=== PATIENT | female | born 1960 | race Hispanic/Latino ===

== ENCOUNTER 2017-09-18 15:01 | Emergency (ER) | payer MEDICARE ==
[2017-09-18] MEDS ORDERED: ASPIRIN 325 MG TABLET ONE (15:23)
[2017-09-18 15:33] LABS: BASOPHILS % (AUTO) 0.4 % (0.0-5.0); EOSINOPHILS % (AUTO) 1.9 % (0.0-8.0); HEMATOCRIT 39.4 % (36-48); LYMPHOCYTES % (AUTO) 14.6 % (21.0-51.0); MEAN CORPUSCULAR HGB CONC 35.4 g/dL (32.0-36.0); MEAN CORPUSCULAR VOLUME 93.2 fL (79-99); MONOCYTES % (AUTO) 10.2 % (3.0-13.0); NEUTROPHILS % (AUTO) 72.9 % (40.0-77.0); NUCLEATED RED BLOOD CELLS 0.1 % (0.0-0.19); PLATELET COUNT (AUTO) 210 K/uL (130-400); RED BLOOD CELL COUNT(AUTO) 4.23 MIL/uL (4.00-5.50); RED CELL DISTRIBUTION WIDTH 13.1 % (11.0-15.5); WHITE BLOOD COUNT (AUTO) 8.3 K/uL (4.8-10.8)
[2017-09-18 15:42] LABS: INR 0.96 (0.85-1.15); PARTIAL THROMBOPLASTIN TIME 28.3 SEC (26.3-35.5); PROTHROMBIN TIME 10.1 SEC (9.6-11.6)
[2017-09-18 15:45] LABS: CREATININE 1.3 mg/dL (0.5-1.5); POTASSIUM 3.7 mmol/L (3.5-5.1)
[2017-09-18 16:00] LABS: ALBUMIN 3.5 g/dL (3.5-5.0); BILIRUBIN,TOTAL 0.5 mg/dL (0.2-1.0); CREATINE KINASE MB 0.7 ng/mL (0.5-3.6)
[2017-09-18 16:01] LABS: B-TYPE NATRIURETIC PEPTIDE 39 pg/mL (0-100)
[2017-09-18] MEDS ORDERED: IOPAMIDOL-370 100 ML VIAL IV ONE (17:19)
== END 2017-09-18 19:18 | disposition home or self-care (01) ==
LOC: EDH 15:01
DX: R07.89 Other chest pain (principal); R06.02 Shortness of breath; I10 Essential (primary) hypertension; Z88.8 Allergy status to other drugs, medicaments and biological substances; Z86.73 Personal history of transient ischemic attack (TIA), and cerebral infarction without residual deficits; Z85.818 Personal history of malignant neoplasm of other sites of lip, oral cavity, and pharynx; Z98.890 Other specified postprocedural states
CPT/HCPCS: 36415; 71045; 71275; 80053; 82550; 82553; 83874; 83880; 84484 ×2; 85025; 85378; 85610; 85730; 93005 ×2; 94761; 99285; Q9967

== ENCOUNTER → 2018-04-22 | Outpatient (CLI) | payer MEDICARE ==
[~2018-04-22] VITALS: Ht 154.9 cm; Wt 125.8 kg
[~2018-04-22] MED LIST: AMLO5TAB9 PO; ASPI1CPM8 PO; CEFAZOLIN 3GM /D5W 100ML 100 ML IV SCH; CHOL50004 PO; DICL75TA5 PO; ESCI20TA36 PO; FAMO20TA8 PO; FOLI1TAB85 PO; FURO20TA4 PO; GENTAMICIN SULFATE 240 MG in SODIUM CHLORIDE 0.9% 100 ML IV SCH; IBUP-2077 PO; LEVO175T9 PO; LISI10TA7 PO; METO50TA18 PO; ROSU10TA27 PO; TYL3 PO
[2018-04-22 13:21] VITALS: BP 154/75
[2018-04-22 13:30] LABS: BASOPHILS % (AUTO) 0.4 % (0.0-5.0); HEMATOCRIT 42.4 % (36-48); LYMPHOCYTES % (AUTO) 10.4 % (21.0-51.0); MEAN CORPUSCULAR HEMOGLOBIN 31.1 pg (27.0-33.0); MEAN CORPUSCULAR HGB CONC 33.1 g/dL (32.0-36.0); NEUTROPHILS % (AUTO) 80.2 % (40.0-77.0); NUCLEATED RED BLOOD CELLS 0.1 % (0.0-0.19); PLATELET COUNT (AUTO) 186 K/uL (130-400); RED BLOOD CELL COUNT(AUTO) 4.51 MIL/uL (4.00-5.50); RED CELL DISTRIBUTION WIDTH 12.6 % (11.0-15.5); WHITE BLOOD COUNT (AUTO) 8.6 K/uL (4.8-10.8)
[2018-04-22 13:41] LABS: CREATININE 1.2 mg/dL (0.5-1.5)
[2018-04-22 13:43] LABS: INR 0.97 (0.85-1.15); PARTIAL THROMBOPLASTIN TIME 30.1 SEC (26.3-35.5); PROTHROMBIN TIME 10.2 SEC (9.6-11.6)
--- NOTE | 2018-04-22 13:52 | NUR ---
SICK PATIENT STATES STARTED WITH CONGESTION THIS AM. STATED "SHE IS NOT SURE IF IT IS ALLERGIES" . INSTRUCTED PATIENT TO SEE PCP TODAY TO MAKE SURE SHE IS OK FOR SURGERY NEXT WEEK ON 04-27-18, PT DENIES ANY FEVER, CHILLS, PHLEGM, OR SORE THROAT. INSTRUCTED PATIENT TO NOTIFY MD IF SHE GETS WORST. BUT TO SEE PCP TODAY TO BE EVALUATED, PT STATED SHE WILL GO TO [facility] RIGHT NOW TO BE CHECKED OUT.
[2018-04-22 14:39] LABS: APPEARANCE,URINE Clear (CLEAR); BILIRUBIN,URINE Negative (NEGATIVE); COLOR,URINE Dark Yellow (YELLOW); GLUCOSE, URINE (UA) Negative (NEGATIVE); KETONES,URINE Trace mg/dL (NEGATIVE); LEUKOCYTE ESTERASE ,URINE Small (NEGATIVE); NITRATE,URINE Negative (NEGATIVE); OCCULT BLOOD,URINE Nonhemolyzed Trace (NEGATIVE); PROTEIN,URINE Trace (NEGATIVE)
[2018-04-22 15:04] LABS: RBC,URINE 0-1 /HPF (0-1)
[2018-04-22 15:05] LABS: BACTERIA,URINE Few /HPF (None Seen); MUCUS,URINE Moderate LPF (None Seen)
--- NOTE | 2018-04-22 15:13 | NUR ---
UA abnormal ua collected 04/22/[address] Siri Rosas, orders received
--- NOTE | 2018-04-25 13:15 | NUR ---
note pts husbands states pt has been ill , flu like symptoms. she went to [facility] and was started on antibiotics on wednesday. called dr palomares to notify him and he stated to cancel surgery. called patient to notify
== END | disposition home or self-care (01) ==
LOC: DAH 10:00 → EDSTATUS 13:30
PROVIDERS: ATTEND Orthopaedic Surgery
DX: M17.11 Unilateral primary osteoarthritis, right knee (principal); I12.9 Hypertensive chronic kidney disease with stage 1 through stage 4 chronic kidney disease, or unspecified chronic kidney disease; E11.22 Type 2 diabetes mellitus with diabetic chronic kidney disease; E78.5 Hyperlipidemia, unspecified; E03.9 Hypothyroidism, unspecified; F41.9 Anxiety disorder, unspecified; Z79.899 Other long term (current) drug therapy
CPT/HCPCS: 36415; 80048; 81001; 85025; 85610; 85730; J0690; J1580

== ENCOUNTER 2018-09-09 06:05 | Day surgery (SDC) | payer MEDICARE ==
[2018-09-08 14:49] VITALS: BP 165/63
[2018-09-08 14:59] LABS: BASOPHILS % (AUTO) 0.6 % (0.0-5.0); EOSINOPHILS % (AUTO) 2.1 % (0.0-8.0); HEMATOCRIT 39.7 % (36-48); LYMPHOCYTES % (AUTO) 15.3 % (21.0-51.0); MEAN CORPUSCULAR HEMOGLOBIN 31.5 pg (27.0-33.0); MEAN CORPUSCULAR HGB CONC 34.2 g/dL (32.0-36.0); MEAN CORPUSCULAR VOLUME 92.1 fL (79-99); MONOCYTES % (AUTO) 8.9 % (3.0-13.0); NEUTROPHILS % (AUTO) 73.1 % (40.0-77.0); PLATELET COUNT (AUTO) 198 K/uL (130-400); RED BLOOD CELL COUNT(AUTO) 4.31 MIL/uL (4.00-5.50); RED CELL DISTRIBUTION WIDTH 13.5 % (11.0-15.5); WHITE BLOOD COUNT (AUTO) 7.1 K/uL (4.8-10.8)
[2018-09-08 15:08] LABS: POTASSIUM 4.1 mmol/L (3.5-5.1)
[2018-09-08 15:47] LABS: APPEARANCE,URINE CLEAR (CLEAR); BILIRUBIN,URINE NEGATIVE (NEGATIVE); COLOR,URINE YELLOW (YELLOW); GLUCOSE, URINE (UA) NEGATIVE (NEGATIVE); KETONES,URINE 5 mg/dL (NEGATIVE); LEUKOCYTE ESTERASE ,URINE SMALL (NEGATIVE); NITRATE,URINE NEGATIVE (NEGATIVE); OCCULT BLOOD,URINE SMALL (NEGATIVE); PH,URINE 5.5 (5.0-8.0); PROTEIN,URINE NEGATIVE (NEGATIVE); UROBILINOGEN,URINE 0.2 mg/dL (0.2-1.0)
[2018-09-08 16:17] LABS: BACTERIA,URINE Few /HPF (None Seen); RBC,URINE 0-1 /HPF (0-1)
[2018-09-08 16:18] LABS: SQUAMOUS EPITHELIAL CELL,UR Few /HPF (0-2)
--- NOTE | 2018-09-08 17:20 | NUR ---
MEDS INFORMED DR. ZHU OF PT TAKING DICLOFENAC AND ABNORMAL UA. ORDERS RECEIVED TO GIVE GENTAMICIN 240MG IV MORNING OF PROCEDURE.
[~2018-09-09] VITALS: Ht 154.9 cm; Wt 122.6 kg
[2018-09-09] VITALS (15 sets, daily range): BP systolic 118–183; BP diastolic 57–79
[~2018-09-09 06:05] MED LIST changes: -ASPI1CPM8 PO; +ASPIRIN PO; -CEFAZOLIN 3GM /D5W 100ML 100 ML IV SCH; +CITA-107 PO; -DICL75TA5 PO; +DICLOFENAC PO; +DIPYRIDAMOLE PO; -ESCI20TA36 PO; -FURO20TA4 PO; -GENTAMICIN SULFATE 240 MG in SODIUM CHLORIDE 0.9% 100 ML IV SCH; +HYDR-2132 PO; -IBUP-2077 PO; -LEVO175T9 PO; +LEVO200T10 PO; +NAPR-1023 PO
--- NOTE | 2018-09-09 06:50 | NUR ---
POTENTIAL FOR INFECTION: SHAVED RIGHT LEG / KNEE FOLLOWED BY WIPING WITH INNA: 2% CHLORHEXIDINE GLUCONATE CLOTH PATIENTS PRE-OP SKIN PREP. DONE BY BARBARA SILVERMAN MA.
[2018-09-09] MEDS ORDERED: LACTATED RINGERS 1000ML 1,000 ML IV ONE (07:00)
[2018-09-09] MEDS: CEFAZOLIN SODIUM 1 GM VIAL ONE ×2 (07:14→08:53)
[2018-09-09] MEDS ORDERED: PROPOFOL 10 MG/ML 20ML VIAL IV ONE (08:23)
[2018-09-09] MEDS ORDERED: LIDOCAINE PF 2% 5ML ABBOJECT ONE (08:23)
[2018-09-09] MEDS ORDERED: FENTANYL CITRATE PF 50 MCG/1 ML 2ML VIAL ONE (08:23)
[2018-09-09] MEDS ORDERED: ROCURONIUM 10MG/1ML SYR 10 MG/ML ML ONE (08:24)
[2018-09-09] MEDS ORDERED: EPHEDRINE SULFATE 50 MG/ML AMPULE ONE (09:06)
[2018-09-09] MEDS ORDERED: KETOROLAC TROMETHAMINE 30MG/ML ONE (09:59)
[2018-09-09] MEDS ORDERED: CEFAZOLIN 3GM /D5W 100ML 100 ML IV PRN (10:00)
[2018-09-09] MEDS ORDERED: GENTAMICIN SULFATE 240 MG in SODIUM CHLORIDE 0.9% 100 ML IV PRN (10:00)
[2018-09-09] MEDS ORDERED: ONDANSETRON HCL 4 MG/2 ML VIAL ONE (10:00)
[2018-09-09] MEDS ORDERED: GLYCOPYRROLATE 1 MG/5 ML SYRINGE ONE (10:01)
[2018-09-09] MEDS ORDERED: NEOSTIGMINE 5MG/5ML SYR IV ONE (10:01)
[2018-09-09] MEDS ORDERED: TYL3 PO (10:03)
[2018-09-09] MEDS ORDERED: SULF1TAB42 PO (10:03)
[2018-09-09] MEDS ORDERED: MORPHINE SULFATE 2 MG/ML 1ML SYG ONE ×2 (10:21→10:31)
[2018-09-09 14:12] LABS: SPECIMENTYPE,BODY FLUID SYNOVIAL
[2018-09-09 14:14] LABS: APPEARANCE BODY FLUID BLOODY (CLEAR); BODY FLUID WBC 205 /cu. mm.; COLOR,BODY FLUID RED (LT YELLOW); TOTAL VOLUME,BODY FLUID 5 mL
[2018-09-09 14:15] LABS: BODY FLUID RBC 8875 /cu. mm.
[2018-09-09 14:27] LABS: BF LYMPHOCYTE 4 %
== END 2018-09-09 11:50 | disposition home or self-care (01) ==
LOC: DAH 06:05
PROVIDERS: ATTEND Orthopaedic Surgery
DX: M25.861 Other specified joint disorders, right knee (principal); Z68.43 Body mass index [BMI] 50.0-59.9, adult; Z79.899 Other long term (current) drug therapy; Z98.890 Other specified postprocedural states; I10 Essential (primary) hypertension; Z86.73 Personal history of transient ischemic attack (TIA), and cerebral infarction without residual deficits; Z96.659 Presence of unspecified artificial knee joint; M19.90 Unspecified osteoarthritis, unspecified site; E05.90 Thyrotoxicosis, unspecified without thyrotoxic crisis or storm; Z98.49 Cataract extraction status, unspecified eye; Z83.3 Family history of diabetes mellitus; Z82.49 Family history of ischemic heart disease and other diseases of the circulatory system; Z85.89 Personal history of malignant neoplasm of other organs and systems; Z85.09 Personal history of malignant neoplasm of other digestive organs; J45.909 Unspecified asthma, uncomplicated; K21.9 Gastro-esophageal reflux disease without esophagitis
CPT/HCPCS: 29877; 36415; 80048; 81001; 85025; 87070; 87076; 87077; 87186; 87205; 89051; A4218; A4606; A4649 ×3; A4930; A6223; J0690; J1580; J1885; J2001; J2405; J2704; J2710; J3010; J3490 ×2; J7030; J7120

== ENCOUNTER 2022-01-10 09:29 | Emergency (ER) | payer MEDICARE ==
[~2022-01-10] VITALS: Ht 154.9 cm; Wt 122.5 kg
[~2022-01-10 09:29] MED LIST changes: +AMLO-257 PO; -AMLO5TAB9 PO; -DICLOFENAC PO; -HYDR-2132 PO; +LISI10TA24 PO; -LISI10TA7 PO; -ROSU10TA27 PO; +ROSU10TA28 PO; +SULF1TAB42 PO
[2022-01-10 09:57] LABS: BASOPHILS % (AUTO) 0.3 % (0.0-5.0); EOSINOPHILS % (AUTO) 1.5 % (0.0-8.0); HEMATOCRIT 44.7 % (36-48); LYMPHOCYTES % (AUTO) 12.2 % (21.0-51.0); MEAN CORPUSCULAR HEMOGLOBIN 30.5 pg (27.0-33.0); MEAN CORPUSCULAR HGB CONC 33.6 g/dL (32.0-36.0); MONOCYTES % (AUTO) 9.4 % (3.0-13.0); NEUTROPHILS % (AUTO) 76.2 % (40.0-77.0); PLATELET COUNT (AUTO) 214 K/uL (130-400); RED BLOOD CELL COUNT(AUTO) 4.91 MIL/uL (4.00-5.50); RED CELL DISTRIBUTION WIDTH 12.6 % (11.0-15.5); WHITE BLOOD COUNT (AUTO) 9.3 K/uL (4.8-10.8)
[2022-01-10 10:17] LABS: APPEARANCE,URINE CLEAR (CLEAR); BILIRUBIN,URINE NEGATIVE (NEGATIVE); COLOR,URINE YELLOW (YELLOW); GLUCOSE, URINE (UA) >=1000 mg/dL (NEGATIVE); KETONES,URINE NEGATIVE (NEGATIVE); LEUKOCYTE ESTERASE ,URINE TRACE (NEGATIVE); NITRATE,URINE NEGATIVE (NEGATIVE); OCCULT BLOOD,URINE TRACE-INTACT (NEGATIVE); PROTEIN,URINE NEGATIVE (NEGATIVE); UROBILINOGEN,URINE 0.2 mg/dL (0.2-1.0)
[2022-01-10 10:27] LABS: ALBUMIN 3.6 g/dL (3.5-5.0); CREATININE 1.3 mg/dL (0.5-1.5); POTASSIUM 4.2 mmol/L (3.5-5.1); TOTAL PROTEIN, SERUM 7.1 g/dL (6.0-8.3)
[2022-01-10 10:44] LABS: BACTERIA,URINE Few /HPF (None Seen); RBC,URINE 0-1 /HPF (0-1); WBC,URINE 0-1 /HPF (0-1)
[2022-01-10] MEDS ORDERED: DICY20TA2 PO (12:30)
[2022-01-10 12:44] VITALS: BP 106/55
== END 2022-01-10 12:46 | disposition home or self-care (01) ==
LOC: EDH 09:29
DX: K80.20 Calculus of gallbladder without cholecystitis without obstruction (principal); E78.00 Pure hypercholesterolemia, unspecified; I10 Essential (primary) hypertension; Z79.1 Long term (current) use of non-steroidal anti-inflammatories (NSAID); Z86.73 Personal history of transient ischemic attack (TIA), and cerebral infarction without residual deficits; Z88.5 Allergy status to narcotic agent; Z88.8 Allergy status to other drugs, medicaments and biological substances
CPT/HCPCS: 36415; 74176; 80053; 81001; 83690; 85025

== ENCOUNTER → 2024-04-07 | Outpatient (CLI) | payer OTHER ==
[~2024-04-07] MED LIST changes: +DICY20TA2 PO; -ROSU10TA28 PO; +ROSU10TA72 PO
--- NOTE | 2024-04-07 10:30 | HMCIMG ---
CT HEART SAVER PROMOTIONAL HISTORY: Calcium scoring COMPARISON: None TECHNIQUE: Computed tomography of the heart was performed with ECG gating and suspended respiration. Postprocessing was performed on a computer workstation to obtain diastolic phase images, determine calcium score and provide a quantitative assessment of extent of disease. This CT included only the heart. HeartSaver score is 330.80. Please see cardiac calcium score report. The available CT chest images show no acute finding. CT was performed with one or more following dose reduction techniques: automated exposure control, adjustment of the mA and kv according to patient's size, or use of a iterative reconstruction technique.
== END | disposition home or self-care (01) ==
LOC: RAH 07:42
PROVIDERS: ATTEND Internal Medicine Cardiovascular Disease
DX: Z13.6 Encounter for screening for cardiovascular disorders (principal)
CPT/HCPCS: 75571

== ENCOUNTER 2024-09-14 06:52 | Observation (INO) | payer MEDICARE ==
[2024-09-11 12:18] LABS: BASOPHILS # (AUTO) 0.03 K/uL (0.00-0.20); BASOPHILS % (AUTO) 0.3 % (0.0-5.0); EOSINOPHILS # (AUTO) 0.14 K/uL (0.00-0.70); EOSINOPHILS % (AUTO) 1.5 % (0.0-8.0); HEMATOCRIT 45.6 % (36-48); IMMATURE GRANULOCYTE ABSOLUTE 0.02 K/uL (0-1); LYMPHOCYTES # (AUTO) 1.4 K/uL (1.0-4.8); LYMPHOCYTES % (AUTO) 14.7 % (21.0-51.0); MEAN CORPUSCULAR HEMOGLOBIN 33.1 pg (27.0-33.0); MEAN CORPUSCULAR HGB CONC 34.9 g/dL (32.0-36.0); MEAN CORPUSCULAR VOLUME 94.8 fL (79-99); MONOCYTES # (AUTO) 0.9 K/uL (0.1-1.0); MONOCYTES % (AUTO) 9.4 % (3.0-13.0); NEUTROPHILS # (AUTO) 6.8 K/uL (1.8-7.7); NEUTROPHILS % (AUTO) 73.9 % (40.0-77.0); PLATELET COUNT (AUTO) 216 K/uL (130-400); RED BLOOD CELL COUNT(AUTO) 4.81 MIL/uL (4.00-5.50); RED CELL DISTRIBUTION WIDTH 12.2 % (11.0-15.5); WHITE BLOOD COUNT (AUTO) 9.2 K/uL (4.8-10.8)
[2024-09-11 12:41] LABS: INR 0.96 (0.85-1.15); PROTHROMBIN TIME 10.2 SEC (9.6-11.6)
[2024-09-11 12:42] LABS: PARTIAL THROMBOPLASTIN TIME 29.6 SEC (26.3-35.5)
--- NOTE | 2024-09-11 12:45 | NUR ---
IS INITIAL TEACHING DONE BY RT BHAVNA
[2024-09-11 12:49] LABS: CREATININE 1.1 mg/dL (0.5-1.0); POTASSIUM 4.5 mmol/L (3.5-5.1)
--- NOTE | 2024-09-11 13:25 | NUR ---
NOTIFIED DR. ZHU PATIENT ON AGGRENOX BID FOR HISTORY OF STROKE, PATIENT UNAWARE OF WHEN TO STOP MEDICATION. INFORMED MD PATIENT TOOK DOSE THIS AM, SURGERY ON THURSDAY 09/14. PER DR. ZHU, PATIENT TO STOP OF NOW. CALLED PATIENT AND INSTRUCTED TO HOLD MEDICATION OF NOW. PT VERBALIZED UNDERSTANDING.
[2024-09-11 13:29] LABS: APPEARANCE,URINE CLEAR (CLEAR); BILIRUBIN,URINE NEGATIVE (NEGATIVE); COLOR,URINE YELLOW (YELLOW); GLUCOSE, URINE (UA) >=1000 mg/dL (NEGATIVE); KETONES,URINE NEGATIVE (NEGATIVE); LEUKOCYTE ESTERASE ,URINE 75 Leu/uL (NEGATIVE); NITRATE,URINE NEGATIVE (NEGATIVE); PROTEIN,URINE 10 mg/dL (NEGATIVE); UROBILINOGEN,URINE 0.2 mg/dL (0.2-1.0)
[2024-09-11 13:35] VITALS: BP 169/82; PULSE 65; RESP 18; TEMP 98.4
[2024-09-11 13:35] LABS: ADD UA MICROSCOPIC YES
[2024-09-11 13:36] LABS: MUCUS,URINE RARE LPF (None Seen); NON-SQUAMOUS EPITHELIAL CELL 1 /HPF (0-2); SQUAMOUS EPITHELIAL CELL,UR MOD /HPF (0-2)
--- NOTE | 2024-09-13 10:11 | NUR ---
RE: LABS REPORTED URINE CX/SUSCEPTIBILITIES TO DR ZHU, NO NEW ORDERS RECEIVED.
[2024-09-14] VITALS (25 sets, daily range): BP systolic 98–143; BP diastolic 51–92; PULSE 66–95; RESP 16–19; TEMP 97.5–98.2; O2SAT 94
[~2024-09-14] VITALS: Ht 154.9 cm; Wt 105.1 kg
[~2024-09-14 06:52] MED LIST changes: -ASPIRIN PO; +ASPIRIN/DIPYRIDAMOLE PO; -CITA-107 PO; +CITA-108 PO; +DAPA10TA PO; -DICY20TA2 PO; -DIPYRIDAMOLE PO; -FAMO20TA8 PO; +LEVO125C5 PO; -LEVO200T10 PO; -LISI10TA24 PO; +LISI20TA24 PO; -NAPR-1023 PO; +PANT40TA54 PO; +SEMA2PEN SQ; -SULF1TAB42 PO; -TYL3 PO
[2024-09-14] MEDS: 0.9%NACL 1000ML 1,000 ML IV ONE (07:23)
[2024-09-14] MEDS ORDERED: dexaMETHasone SOD PHOSPHATE 10MG/ML 1ML VIAL ONE (07:37)
[2024-09-14] MEDS ORDERED: proPOFol 10 MG/ML 20ML VIAL IV ONE (07:37)
[2024-09-14] MEDS ORDERED: LIDOCAINE PF 100MG/5ML (2%) SYRINGE 5ML ONE (07:37)
[2024-09-14] MEDS ORDERED: SUCCINYLCHOLINE CHLORIDE 20 MG/ML 10 ML VIAL ONE (07:37)
[2024-09-14] MEDS ORDERED: GLYCOPYRROLATE 0.2 MG/ML 5 ML VIAL ONE (07:38)
[2024-09-14] MEDS ORDERED: FENTanyl CITRate PF 50 MCG/1 ML 2ML VIAL ONE ×2 (07:38→11:07)
[2024-09-14] MEDS ORDERED: NEOSTIGMINE METHYLSULFATE 1MG/ML IV ONE (07:38)
[2024-09-14] MEDS ORDERED: ondanSETRON 4MG INJ ONE (07:38)
[2024-09-14] MEDS ORDERED: rocuRONium bROMide 10MG/1ML 5ML VL ONE (07:38)
[2024-09-14] MEDS ORDERED: MIDAZOLAM HCL 1 MG/ML 2ML VIAL ONE (07:38)
[2024-09-14] MEDS ORDERED: VANCOMYCIN 500MG+NS 100ML 100 ML IV ONE (07:40)
[2024-09-14] MEDS ORDERED: phenylEPHRINE HCL 10 MG/ML 1ML VIAL IV ONE (07:41)
[2024-09-14] MEDS ORDERED: ceFAZolin SODIUM 1 GM VIAL ONE (08:11)
[2024-09-14] MEDS: TRANEXAMIC ACID 1000MG/10ML ONE (10:22)
[2024-09-14] MEDS: ceFAZolin SODIUM 2 GM VIAL ONE (10:23)
[2024-09-14] MEDS ORDERED: EPINEPHrine PF 1MG (1:1,000) 1 MG/ML AMP ONE (10:38)
[2024-09-14] MEDS: FAMOTIDINE 20MG VIAL IV ONE (10:44)
[2024-09-14] MEDS ORDERED: ePHEDrine SULFate 50 MG/ML AMPULE ONE (10:50)
[2024-09-14] MEDS: ceFAZolin SODIUM 1 GM VIAL IRRIG ONE (11:05)
[2024-09-14] MEDS: VANCOMYCIN 500MG VIAL IJ ONE ×2 (11:05)
--- NOTE | 2024-09-14 12:16 | OP ---
Operative Note: DATE OF PROCEDURE: 09/14/24 SURGEON: LISHA ZHU MD SPOTLIGHT OPERATOR: [Heydi Cardenas CFA] ANESTHESIA: [General anesthesia plus regional block] ANESTHESIOLOGIST/SILVER LAP MACHINE TENDER: [Chele Mendiola CRNA] PREOPERATIVE DIAGNOSIS: [Left knee osteoarthritis] POSTOPERATIVE DIAGNOSIS: [Left knee osteoarthritis] IMPLANTS: [Biomet vanguard: Femur size 67.5 left PS. Tibia size 67 fixed cruciate. Tibial liner size 10 x 60 3/67 PS. Patella size 28 by eight asymmetric.] PROCEDURE: [Left total knee arthroplasty] ESTIMATED BLOOD LOSS: [100 mL] INDICATIONS: [64-year-old female with history of pain to the left knee secondary to osteoarthritis that has no longer responded to conservative treatment. The patient is brought to the operating room for a left total knee arthroplasty. Procedure understood, risks, benefits and possible complications and the patient agreed signed the consent form] DESCRIPTION OF PROCEDURE: [After adequate general anesthesia was achieved and regional block obtained the left lower extremity was prepped and draped in the usual manner previous placement of the tourniquet in the proximal thigh. The extremity was then elevated and exsanguinated with an Esmarch bandage and the tourniquet inflated to 250 mmHg the Esmarch band been then removed. With the knee in flexion a longitudinal incision was then made in the anterior aspect through the skin followed by dissection of the subcutaneous tissue. A bone infusion needle was then inserted just medial to the tibial tuberosity and we proceeded to inject into the proximal tibia a solution of normal saline 50 mL with vancomycin 500 mg. The bone infusion needle was then removed. A paramedian approach was then made with the Bovie cautery cutting through the quadriceps tendon, medial patellar retinaculum and patellar tendon retinaculum. The retropatellar tendon fat was then excised and the soft tissue elements of the tibia were elevated subperiosteally and retractors were applied medially and laterally . The anterior and posterior cruciate ligaments were resected. With the use of a drill a starting hole was made in the distal femur entering the intramedullary canal and then after removal of the drill an intramedullary guide was inserted with a 5 degree valgus block that touched the distal femur and to this the distal femoral cutting guide was then applied anteriorly and was secured to the distal femur with the use of pins. The intramedullary guide was then removed and with the use of the oscillating saw we proceeded to resect the distal femur removing the fragments and the guide. The femoral sizer was then applied distally and drill holes were made removing the sizer and the 4-in-1 cutting block was then inserted and the anterior, posterior and chamfer cuts were made removing the fragments and the block. The posterior cruciate ligament retractor was then inserted posterior to the tibia and this was brought forward proceeding then to apply the external tibial alignment guide and secured the proximal cutting guide to the tibia with the use of pins. With the use of the oscillating saw the proximal cut to the tibia tibia was made. The bone fragment was removed and the trial tibia plate was chosen. At this point the menisci were removed sharply and with the use of the curved osteotome the posterior osteophytes of the femur were removed. The PS cutting guide was then inserted and the intercondylar cut was made removing the fragment and the guide. The trial components were then inserted at the femur and tibia with a trial tibial liner bringing the knee into extension noticing that the patient had a very stable knee in flexion, extension and with valgus and varus stress. The knee was maintained in extension and the patella was then addressed proceeding to measure its thickness and then with the use of the oscillating saw we removed eight mm from the articular surface and restored the height with application of a trial component after 3 peg holes were made. The patellofemoral ligament was removed and then the patellofemoral tracking was checked noticing to be lateralize and for this reason we proceeded to do an extensive lateral release the tracking becoming then normal. At this moment all the components were removed, the tibia after the metaphyseal defect was created and while cement was being mixed on the back table we proceeded to irrigate the joint with antibiotic solution and then cover the entry to the femoral canal with a bone plug. Once the cement was ready we proceeded to apply it first to the tibia surface inserting the final component and then to the femoral surface and inserted the final component removing the excess cement and then applying a trial liner bringing the knee into extension for compression. Then we proceeded to irrigate the patella surface and dried it applying then bone cement and the final patellar component was inserted and was secured with application of a clamp. The joint was irrigated with a warm diluted Betadine solution while the cement dried followed by irrigation with antibiotic solution. The trial liner was removed as well as the patellar clamp and we proceeded then to irrigate the posterior aspect of the joint to remove all the remaining debris and the final tibial liner was inserted and locked against the tibia . The range of motion was checked and noticed to be adequate with full extension and flexion, no laxity in valgus or varus stress and with adequate patellofemoral tracking. The patient had no anterior or posterior drawer. After further irrigation the tourniquet was deflated and hemostasis was obtained. The wound was then closed with approximation of the quadriceps tendon, patellar retinaculum and patellar tendon retinaculum with #1 Vicryl close stitches alternating with #1 Ethibond stitches, and this was followed by closure of the subcutaneous tissue with 2-0 Monocryl inverted stitches and the skin was closed with 3-0 Monocryl subcuticularly. The wound was covered with a suction dressing followed by application of an Link bandage for compression and the drapes were then removed transferring the patient to the hospital bed and taken to recovery room for follow-up by anesthesia. There were no complications during the procedure.] LISHA ZHU MD September 14, 2024 12:15
[2024-09-14] MEDS ORDERED: PoTASSium chl 10% ELIXIR 20MEQ 20 MEQ/15 ML UDCUP PO PRN (12:30)
[2024-09-14] MEDS ORDERED: PoTASSium chloRIDE 20MEQ/100ML 100 ML IV PRN (12:30)
[2024-09-14] MEDS ORDERED: FERROUS FUMARATE 324 MG TABLET PO PRN (12:30)
[2024-09-14] MEDS ORDERED: PoTASSium chloRIDE 20MEQ ER 20 MEQ ERTAB PO PRN (12:30)
[2024-09-14] MEDS ORDERED: TEMAZepam 15 MG CAPSULE PO PRN (12:30)
[2024-09-14] MEDS ORDERED: DiphenhydrAMINE HCL 50 MG/ML VIAL IVP PRN (12:30)
[2024-09-14] MEDS ORDERED: traMADol HCL 50 MG TABLET PO PRN (12:30)
[2024-09-14] MEDS ORDERED: CALCIUM CARB 500MG PO PRN (12:30)
[2024-09-14] MEDS: acetaMINOPHEN 500 MG TABLET PO SCH (12:30)
[2024-09-14] MEDS: ondanSETRON 4MG INJ IVP PRN (14:09)
[2024-09-14] MEDS: INSULIN humuLIN R 100 UNIT/ML 3ML SQ SCH (16:30)
--- NOTE | 2024-09-14 16:30 | NUR ---
Order received and patient evaluated. Daughter in room during evaluation. As per daughter and patient, she is to go to post hospital rehab facility. Informed JACQUE Young, they have already spoken to [place] [facility]. Patient and daughter were educated on requesting pain medication with breakfast and lunch so that when PT works with her, pain will be better controlled. Educated on the use of ice packs for pain and edema control. Both verbalized understanding. PT team to follow. Addendum: 09/14/24 at 1650 by MAKENNA BURTON PT Amended: Links added.
--- NOTE | 2024-09-14 16:35 | NUR ---
ORTHO COORDINATOR: PHYSICAL THERAPY AT BEDSIDE, EDUCATION DEFERRED.
[2024-09-14] MEDS: ceFAZolin SODIUM 2 GM VIAL IVPB SCH (17:17)
[2024-09-14] MEDS: 0.9%NACL 1000ML 1,000 ML IV SCH (17:24)
--- NOTE | 2024-09-14 17:54 | NUR ---
D/C PLAN CM spoke to patient and daughter at bedside regarding d/c planning. Patient lives with daughter Suzanna. Denies having any home services. Patient has front wheeled walker. Daughter states she works and will not be available to assist during the day. CM discussed rehab placement. Patient and daughter prefer placement at [facility]. CM to send referral and follow up. Patient and daughter aware that insurance has up to 72 hours to respond. Addendum: 09/14/24 at 1806 by HAYLIE ROQUE CM Amended: Links added.
[2024-09-14] MEDS: LISINOPRIL 20 MG TABLET PO SCH (20:49)
[2024-09-14] MEDS: atorVAStatin 40 MG TABLET PO SCH (20:49)
[2024-09-14] MEDS: metoPROLOL tartRATE 50 MG TAB PO SCH (20:49)
[2024-09-14] MEDS: citaLOPram 20 MG TABLET PO SCH (20:49)
[2024-09-14] MEDS: OXYcodONE HCL 5 MG TAB PO PRN (20:51)
[2024-09-14] MEDS ORDERED: FAMOTIDINE 20MG TAB PO SCH (21:00)
[2024-09-15] VITALS: BP 113/68; PULSE 85; RESP 17; TEMP 98.2
[2024-09-15 04:00] VITALS: BP 124/76; PULSE 75; RESP 18; TEMP 98
[2024-09-15 04:41] LABS: HEMATOCRIT 35.5 % (36-48); MEAN CORPUSCULAR HEMOGLOBIN 32.8 pg (27.0-33.0); MEAN CORPUSCULAR HGB CONC 34.9 g/dL (32.0-36.0); MEAN CORPUSCULAR VOLUME 93.9 fL (79-99); RED BLOOD CELL COUNT(AUTO) 3.78 MIL/uL (4.00-5.50); WHITE BLOOD COUNT (AUTO) 13.1 K/uL (4.8-10.8)
[2024-09-15 05:00] LABS: POTASSIUM 4.5 mmol/L (3.5-5.1)
[2024-09-15] MEDS: levoTHYROxine 125 MCG TABLET PO SCH (06:49)
[2024-09-15 08:00] VITALS: BP 131/68; PULSE 76; RESP 18; TEMP 98.2
--- NOTE | 2024-09-15 08:12 | PN ---
Ortho postop day one. This morning the patient is awake alert and oriented however she is still in bed but states that she will get out of bed once that she finishes her breakfast. Reports adequate pain control. Laboratory results reviewed. Vital signs have been stable. Afebrile. Voiding on her own without difficulty. Operative findings discussed with the patient. The Link bandage his already been removed and the Picco dressing is intact. Gastrocnemius soft nontender negative Homans. Reinforced incentive spirometry. Pending physical therapy this morning. [facility] Assessment: Status post left TKA Plan: Continue with Dr. Bruce was TKA protocol and discharge planning Vitals/Labs Vital Signs Date Time Temp Pulse Resp B/P (MAP) Pulse Ox O2 Delivery O2 Flow Rate FiO2 09/15/24 04:00 98.1 75 18 124/76 96 Room Air 09/14/24 20:00 0 21 Laboratory Tests 09/15/24 04:13 Medications Current Medications Cefazolin Sodium 2 gm STK-MED ONCE .ROUTE Last administered on 09/14/24at 10:23; Start 09/14/24 at 07:23; Stop 09/14/24 at 07:23; Status DC Sodium Chloride 1,000 ml @ As Directed STK-MED ONCE IV; Start 09/14/24 at 07:23; Stop 09/14/24 at 07:24; Status DC Lidocaine HCl 100 mg STK-MED ONCE .ROUTE; Start 09/14/24 at 07:37; Stop 09/14/24 at 07:37; Status DC Succinylcholine Chloride 200 mg STK-MED ONCE .ROUTE; Start 09/14/24 at 07:37; Stop 09/14/24 at 07:37; Status DC Propofol 200 mg STK-MED ONCE IV; Start 09/14/24 at 07:37; Stop 09/14/24 at 07:37; Status DC Dexamethasone Sodium Phosphate 10 mg STK-MED ONCE .ROUTE; Start 09/14/24 at 07:37; Stop 09/14/24 at 07:37; Status DC Glycopyrrolate 1 mg STK-MED ONCE .ROUTE; Start 09/14/24 at 07:38; Stop 09/14/24 at 07:38; Status DC Neostigmine Methylsulfate 10 mg STK-MED ONCE IV; Start 09/14/24 at 07:38; Stop 09/14/24 at 07:38; Status DC Ondansetron HCl 4 mg STK-MED ONCE .ROUTE; Start 09/14/24 at 07:38; Stop 09/14/24 at 07:38; Status DC Rocuronium [place] 50 mg STK-MED ONCE .ROUTE; Start 09/14/24 at 07:38; Stop 09/14/24 at 07:38; Status DC Fentanyl Citrate 100 mcg STK-MED ONCE .ROUTE; Start 09/14/24 at 07:38; Stop 09/14/24 at 07:39; Status DC Midazolam HCl 2 mg STK-MED ONCE .ROUTE; Start 09/14/24 at 07:38; Stop 09/14/24 at 07:39; Status DC Tranexamic Acid 1,000 mg STK-MED ONCE .ROUTE Last administered on 09/14/24at 10:22; Start 09/14/24 at 07:40; Stop 09/14/24 at 07:41; Status DC Vancomycin HCl 100 ml @ As Directed STK-MED ONCE IV; Start 09/14/24 at 07:40; Stop 09/14/24 at 07:41; Status DC Phenylephrine HCl 10 mg STK-MED ONCE IV; Start 09/14/24 at 07:41; Stop 09/14/24 at 07:41; Status DC Cefazolin Sodium 1 gm STK-MED ONCE .ROUTE; Start 09/14/24 at 08:11; Stop 09/14/24 at 08:11; Status DC Vancomycin HCl 500 mg STK-MED ONCE IJ; Start 09/14/24 at 00:00; Stop 09/14/24 at 00:01; Status Cancel Cefazolin Sodium 3 gm STK-MED ONCE IRRIG; Start 09/14/24 at 00:00; Stop 09/14/24 at 00:01; Status Cancel Tranexamic Acid 1,000 mg STK-MED ONCE IV; Start 09/14/24 at 00:00; Stop 09/14/24 at 00:01; Status Cancel Epinephrine HCl 1 mg STK-MED ONCE .ROUTE; Start 09/14/24 at 10:38; Stop 09/14/24 at 10:38; Status DC Famotidine 20 mg STK-MED ONCE IV; Start 09/14/24 at 10:44; Stop 09/14/24 at 10:45; Status DC Ephedrine Sulfate 50 mg STK-MED ONCE .ROUTE; Start 09/14/24 at 10:50; Stop 09/14/24 at 10:51; Status DC Fentanyl Citrate 100 mcg STK-MED ONCE .ROUTE; Start 09/14/24 at 11:07; Stop 09/14/24 at 11:08; Status DC Vancomycin HCl 500 mg STK-MED ONCE IJ Last administered on 09/14/24at 11:05; Start 09/14/24 at 11:05; Stop 09/14/24 at 11:27; Status DC Cefazolin Sodium 3 gm STK-MED ONCE IRRIG Last administered on 09/14/24at 11:05; Start 09/14/24 at 11:05; Stop 09/14/24 at 11:50; Status DC Tranexamic Acid 1,000 mg STK-MED ONCE IV Last administered on 09/14/24at 11:47; Start 09/14/24 at 11:47; Stop 09/14/24 at 11:50; Status DC Sodium Chloride 1,000 ml @ 100 mls/hr Q10H IV Last administered on 09/14/24at 17:24; Start 09/14/24 at 12:30; Stop 09/15/24 at 12:29 Polyethylene Glycol 17 gm DAILY PO; Start 09/15/24 at 09:00; Stop 10/15/24 at 08:59 Bisacodyl 10 mg DAILY PRN RC; Start 09/17/24 at 12:30; Stop 10/17/24 at 12:29 Ketorolac Tromethamine 15 mg Q6H PRN IV; Start 09/14/24 at 12:30; Stop 09/19/24 at 12:29 Famotidine 20 mg Q24H PO; Start 09/14/24 at 21:00; Stop 09/14/24 at 16:04; Status DC Ferrous Fumarate 324 mg DAILY PRN PO; Start 09/14/24 at 12:30; Stop 10/14/24 at 12:29 Temazepam 15 mg HS PRN PO; Start 09/14/24 at 12:30; Stop 10/14/24 at 12:29 Ondansetron HCl 4 mg Q6H PRN IVP Last administered on 09/14/24at 14:09; Start 09/14/24 at 12:30; Stop 10/14/24 at 12:29 Calcium Carbonate 500 mg Q12H PRN PO; Start 09/14/24 at 12:30; Stop 10/14/24 at 12:29 Diphenhydramine HCl 25 mg Q6H PRN IVP; Start 09/14/24 at 12:30; Stop 10/14/24 at 12:29 Insulin Human Regular INSULIN SLIDING SCAL... ACHS SQ; Start 09/14/24 at 16:30; Stop 10/14/24 at 16:29 Cefazolin Sodium 2 gm Q8H IVPB Last administered on 09/15/24at 01:26; Start 09/14/24 at 17:30; Stop 09/15/24 at 01:31; Status DC Potassium Chloride 100 ml @ 100 mls/hr AD PRN IV; Start 09/14/24 at 12:30; Stop 10/14/24 at 12:29 Potassium Chloride 20 meq AD PRN PO; Start 09/14/24 at 12:30; Stop 10/14/24 at 12:29 Potassium Chloride 20 meq AD PRN PO; Start 09/14/24 at 12:30; Stop 10/14/24 at 12:29 Oxycodone HCl 5 mg Q4H PRN PO; Start 09/14/24 at 12:30; Stop 09/21/24 at 12:29 Oxycodone HCl 10 mg Q4H PRN PO Last administered on 09/15/24at 01:26; Start 09/14/24 at 12:30; Stop 09/21/24 at 12:29 Tramadol HCl 50 mg Q6H PRN PO; Start 09/14/24 at 12:30; Stop 09/19/24 at 12:29 Acetaminophen 1,000 mg Q8H PO Last administered on 09/15/24at 06:50; Start 09/14/24 at 12:30; Stop 10/14/24 at 12:29 Apixaban 2.5 mg BID PO; Start 09/15/24 at 09:00; Stop 10/15/24 at 08:59 Amlodipine Besylate 5 mg AM PO; Start 09/15/24 at 09:00; Stop 10/15/24 at 08:59 Lisinopril 20 mg BID PO Last administered on 09/14/24at 20:49; Start 09/14/24 at 21:00; Stop 10/14/24 at 20:59 Metoprolol Tartrate 50 mg BID PO Last administered on 09/14/24at 20:49; Start 09/14/24 at 21:00; Stop 10/14/24 at 20:59 Pantoprazole Sodium 40 mg DAILY PO; Start 09/15/24 at 09:00; Stop 10/15/24 at 08:59 Home Med Cholecalciferol (Vitamin D3) 5,000 UNIT DAILY PO; Start 09/15/24 at 09:00; Stop 10/15/24 at 08:59 Citalopram Hydrobromide 20 mg HS PO Last administered on 09/14/24at 20:49; Start 09/14/24 at 21:00; Stop 10/14/24 at 20:59 Empaglifozin 25 mg DAILY PO; Start 09/15/24 at 09:00; Stop 10/15/24 at 08:59 Levothyroxine Sodium 125 mcg SYN PO Last administered on 09/15/24at 06:49; Start 09/15/24 at 06:30; Stop 10/15/24 at 06:29 Atorvastatin Calcium 40 mg HS PO Last administered on 09/14/24at 20:49; Start 09/14/24 at 21:00; Stop 10/14/24 at 20:59 Miscellaneous Medication 2 mg QWEEK SQ; Start 09/21/24 at 09:00; Stop 09/14/24 at 16:06; Status DC Vitamin B Complex/ Vit C/Folic Acid 1 cap DAILY PO; Start 09/15/24 at 09:00; Stop 10/15/24 at 08:59 ZOFIA SULLIVAN NP September 15, 2024 08:12
[2024-09-15 08:37] VITALS: O2SAT 91
[2024-09-15] MEDS: Cholecalciferol (Vitamin D3) 5,000 UNIT PO SCH (09:00)
[2024-09-15] MEDS: amLODIPine 5 MG TAB PO SCH (09:13)
[2024-09-15] MEDS: EMPAGLIFLOZIN 25MG TABLET PO SCH (09:13)
[2024-09-15] MEDS: Vitamin B Complex/Vit C/Folic Acid PO SCH (09:13)
[2024-09-15] MEDS: APIXaban 2.5 MG TABLET PO SCH (09:14)
[2024-09-15] MEDS: polyETHYLene GLYCol 3350 17 GM POWD.PACK PO SCH (09:14)
[2024-09-15] MEDS: PANTOPrazole 40 MG TAB DR PO SCH (09:14)
[2024-09-15] MEDS: OXYcodONE HCL 5 MG TAB PO PRN (09:57)
[2024-09-15 12:00] VITALS: BP 133/61; PULSE 70; RESP 18; TEMP 98.1
[2024-09-15] MEDS: ketOROlac 15MG/ML VIAL (15MG/ML) IV PRN (12:02)
--- NOTE | 2024-09-15 12:07 | NUR ---
[facility] [id number] RECEIVED CALL FROM REP PATIENT ACCEPTED. SENT MESSAGE TO PRIMARY MD AND ANGIE AMES KNOW CAN GO VIA [facility]. Addendum: 09/15/24 at 1209 by ADY VILLEGAS RN CM Amended: Links added.
[2024-09-15] MEDS ORDERED: APIX2.5T PO (14:36)
[2024-09-15] MEDS ORDERED: HYDR-4060 PO (14:36)
[2024-09-15 16:00] VITALS: BP 100/72; PULSE 66; RESP 18; TEMP 98.3
--- NOTE | 2024-09-15 16:05 | NUR ---
ORTHO COORDINATOR: TEACHING REGARDING DVT AND PNEUMONIA PREVENTION, PAIN EXPECTATIONS AND PAIN MANAGEMENT. PATIENT IN BED, DRESSED IN STREET CLOTHES. INCENTIVE SPIROMETER ON BEDSIDE TABLE, B SCD SLEEVES APPLIED AND FUNCTIONING. CONCEPCIÓN DRESSING DRY AND INTACT, CASSETTE FUNCTIONING EVIDENCE BY GREEN LIGHT. CONCEPCIÓN INSTRUCTIONS AND INSTRUCTION SHEET PROVIDED. PATIENT INSTRUCTED TO TAKE EXTRA CONCEPCIÓN DRESSING WHEN DISCHARGED TO REHAB. PATIENT ENCOURAGE TO PERFORM SELF PAIN ASSESSMENTS EVERY FOUR HOURS AND REPORT TO NURSING STAFF TO RECEIVE PAIN MEDICATION. ENCOURAGED TO CONTINUE TO PREMEDICATE PRIOR TO PHYSICAL THERAPY AND PERIODS OF HIGH ACTIVITY. PATIENT RETURN DEMONSTRATED PROPER USE OF INCENTIVE SPIROMETER AND FOOT FLEXION AND EXTENSION EXERCISES. RATIONALE PROVIDED FOR ALL ACTIONS. PATIENT VERBALIZED UNDERSTANDING TO ALL DIRECTIONS. NO ADDITIONAL QUESTIONS/CONCERNS.
--- NOTE | 2024-09-15 16:45 | NUR ---
CALLED [facility] TO GIVE REPORT. NURSE NOT AVAILABLE. GAVE SPECTRA FOR NURSE TO CALL BACK. ADVISE PATIENT WOULD ALSO BE NEEDING [facility] TRANSPORT
--- NOTE | 2024-09-15 17:30 | NUR ---
CALLED [facility] AND REPORT GIVEN TO AKI RODRIGUEZ. UPDATED ON WOUNDCARE AND DRESSING REMOVAL DATE. ADVISED PATIENT WOULD BE NEED FACILITY [facility] TRANSPORT. ALL QUESTIONS AND CONCERNS ANSWERED. GIVEN CALL BACK NUMBER FOR ANY ADDITIONAL QUESTIONS.
--- NOTE | 2024-09-15 18:20 | NUR ---
PATIENT DISCHARGED TO [facility]. IV REMOVED INTACT. NO TELE. INFORMED OF FOLLOW UP APPOINTMENT WITH DR ZHU 10/06/24 @9:30AM. INSTRUCTIONS ON KEEPING BATTERY PACK FOR CONCEPCIÓN DRESSING DRY. ALL QUESTIONS AND CONCERNS ANSWERED. PATIENT WHEELED DOWN ALERT AND ORIENTED VIA [facility] PERSONNEL
[2024-09-17] MEDS ORDERED: BisaCODYL 10 MG SUPP.RECT RC PRN (12:30)
[2024-09-21] MEDS ORDERED: SEMAGLUTIDE 2 MG SQ SCH (09:00)
== END 2024-09-15 18:05 ==
LOC: DAH 06:52 → UNDOADMOB 06:53 → DAHIP 06:53 → 4CH 13:40
PROVIDERS: ADMIT Orthopaedic Surgery; ATTEND Orthopaedic Surgery
DX: M17.12 Unilateral primary osteoarthritis, left knee (principal); G89.18 Other acute postprocedural pain; E03.9 Hypothyroidism, unspecified; I10 Essential (primary) hypertension; E66.9 Obesity, unspecified; Z88.5 Allergy status to narcotic agent; Z68.41 Body mass index [BMI] 40.0-44.9, adult; Z79.899 Other long term (current) drug therapy; Z86.2 Personal history of diseases of the blood and blood-forming organs and certain disorders involving the immune mechanism
CPT/HCPCS: 80048 ×2; 85025; 85610; 85730; 87086 ×2; 87186; 81001; 36415 ×2; 87641; 27447; 96365; 96375 ×2; 82948 ×6; 88311; 88305; 97161; 97116 ×3; 96366; 85027; 97530; G0378 ×28; A4663; J7120; J3490 ×6; J3010 ×2; J0690 ×5; J1100; J0330; J7030; J2003; J0171; J2250; J2704; J2405 ×3; J2710; J2371; J3370 ×2; A9272; A4649 ×4; A4930 ×2; C1713; C1776; A5120; A4215; A4223 ×2; A4213; A4222; A4221; A4216; J1885; 64447

== ENCOUNTER → 2025-03-01 | Outpatient (CLI) | payer MEDICARE ==
[~2025-03-01] MED LIST changes: +APIX2.5T PO; +HYDR-4060 PO; -ROSU10TA72 PO; +ROSU10TA98 PO
--- NOTE | 2025-03-01 14:18 | HMCIMG ---
CLINICAL INDICATION: . Osteoporosis without current pathological fracture COMPARISON: None available TECHNIQUE: Bone densitometry is performed of the lumbar spine and left hip. FINDINGS: Total BMD of lumbar spine is 0.818 g/cm2 with a T-score of minus 2.1 and Z-score is -0.3. Total BMD of left hip is 0.718 g/cm2 with a T-score of -1.8 and Z-score is -0.7. FRAX SCORE: The 10 year fracture risk for a major osteoporotic fracture and hip fracture not reported T score at or below -2.5 IMPRESSION: 1. Osteopenia of the lumbar spine 2. Osteoporosis of the left hip 3. I would recommend follow-up in 13 months. World Health Organization criteria for BMD interpretation classify patients as Normal (T-score at or above -1.0), Osteopenic (T-score between -1.0 and -2.5), or Osteoporotic (T-score at or below -2.5). FRAX SCORE: A. All treatment decisions require clinical judgment and consideration of individual patient factors, including patient preferences, comorbidities, previous drug use, risk factors not captured in the FRAX model (e.g., frailty, falls, vitamin D deficiency, increased bone turnover, interval significant decline in bone density) and possible [id number]-estimation of fracture risk by FRAX. B. In addition, the NOF Guide recommends that FDA-approved medical therapies be considered in postmenopausal women and men age greater than or equal to 50 years with a: i. Hip or vertebral (clinical or morphometric) fracture. ii. T-score of less than or equal to -2.5 at the spine or hip. iii. Ten-year fracture probability by FRAX of greater than or equal to 3% for hip fracture of greater than or equal to 20% for major osteoporotic fracture.
== END | disposition home or self-care (01) ==
LOC: RAH 12:42
PROVIDERS: ATTEND Nurse Practitioner Family
DX: M81.0 Age-related osteoporosis without current pathological fracture (principal); M85.88 Other specified disorders of bone density and structure, other site
CPT/HCPCS: 77080